=== PATIENT | female | born 1955 | race Caucasian/White ===

== ENCOUNTER 2018-02-09 00:20 | Emergency (ER) | payer OTHER ==
[2018-02-09] MEDS ORDERED: NS 500 ML IV ONE (00:23)
--- NOTE | 2018-02-09 00:25 | EDPHY ---
H & P Stated Complaint: palpitations Time Seen by Provider: 02/09/18 00:22 HPI/ROS: HPI The patient presents with palpitations which awoke her from sleep at about 9:30 p.m. Tonight. She describes a sensation of her heart racing associated with throat tightness. She waited several hours but her symptoms continued so she called paramedics. She was found to be in atrial fibrillation with rapid ventricular response. During her transport, she converted to a normal sinus rhythm. She was given aspirin 324 mg p.o. By the paramedics. She does take metoprolol regularly. She has 2 prior similar episodes though these have usually lasted for less than 1 hr. She has never been diagnosed with atrial fibrillation before. She does not have any chest pain, shortness of breath currently. REVIEW OF SYSTEMS 10 systems were reviewed and negative with the exception of the elements mentioned in the history of present illness. PMHx: History of CAD with stent in place in her RCA, placed about 8 years ago, Alejandre patient, takes baby aspirin daily, on metoprolol Soc Hx: Lives in [place] with her PHYSICAL General Appearance: Alert, no distress Eyes: Pupils equal and round no pallor or injection ENT, Mouth: Mucous membranes moist Respiratory: There are no retractions, lungs are clear to auscultation Cardiovascular: Regular rate and rhythm Gastrointestinal: Abdomen is soft and non-tender, no masses, bowel sounds normal Neurological: A&O, moves all extremities Skin: Warm and dry, no rashes Musculoskeletal: Neck is supple non tender Extremities: symmetrical, full range of motion Psychiatric: Patient is oriented X 3, there is no agitation Source: Patient Exam Limitations: No limitations Constitutional: Initial Vital Signs Temperature (C) 36.7 C 02/09/18 00:27 Heart Rate 79 02/09/18 00:27 Respiratory Rate 16 02/09/18 00:27 Blood Pressure 145/91 H 02/09/18 00:27 O2 Sat (%) 93 02/09/18 00:27 O2 Delivery Mode Room Air Allergies/Adverse Reactions: narcotics Allergy (Uncoded 02/09/18 00:24) Home Medications: Medication Instructions Recorded Atorvastatin Calcium [Lipitor 10 10 mg PO DAILY 05/02/10 mg] Lisinopril [Zestril 10 mg (*)] 10 mg PO DAILY 05/02/10 Aspirin 81 Mg 12/12/11 Metoprolol 12/12/11 Protoonix 12/12/11 Ezetimibe 02/09/18 Vitamin D3 02/09/18 Medical Decision Making - Diagnostics EKG Interpretation: EKG: Complete interpretation has been separately recorded in the [facility] archive. Summary impression: Normal sinus rhythm Imaging Results: Chest x-ray single view shows no cardiomegaly, no effusion, interpreted by me, radiology interpretation is pending. Imaging: I viewed and interpreted images myself Differential Diagnosis: 63-year-old female with history CAD with NE with stent placed about 8 years ago , hypertension, on a baby aspirin daily who presents brought in by ambulance for an episode of palpitations. Found to be in atrial fibrillation with RVR. Spontaneously converted to normal sinus rhythm. Currently feels fine. She has no prior history of atrial fibrillation though does report prior similar symptoms which were shorter lasting. Plan for monitoring here, basic laboratory testing, close outpatient follow-up with Cardiology at [facility]. CHADS-VASC2 score is 3, pt should receive anticoagulation. I spoke with Hill, Leslie RN, can schedule patient with PCP tomorrow 02/10 to discuss anticoagulation and possible cardiology referral. - Data Points Laboratory Results: Laboratory Results 02/09/18 00:40 02/09/18 00:40 02/09/18 02/09/18 02/09/18 00:42 00:40 00:40 WBC 7.06 10^3/uL 10^3/uL (3.80-9.50) RBC 4.69 10^6/uL 10^6/uL (4.18-5.33) Hgb 15.0 g/dL g/dL (12.6-16.3) Hct 44.5 % % (38.0-47.0) MCV 94.9 fL fL (81.5-99.8) MCH 32.0 pg pg (27.9-34.1) MCHC 33.7 g/dL g/dL (32.4-36.7) RDW 15.0 % % (11.5-15.2) Plt Count 206 10^3/uL 10^3/uL (150-400) MPV 9.9 fL fL (8.7-11.7) Neut % (Auto) 62.4 % % (39.3-74.2) Lymph % (Auto) 28.0 % % (15.0-45.0) [place] % (Auto) 7.4 % % (4.5-13.0) Eos % (Auto) 1.4 % % (0.6-7.6) Baso % (Auto) 0.7 % % (0.3-1.7) Nucleat RBC Rel Count 0.0 % % (0.0-0.2) Absolute Neuts (auto) 4.40 10^3/uL 10^3/uL (1.70-6.50) Absolute Lymphs (auto) 1.98 10^3/uL 10^3/uL (1.00-3.00) Absolute Monos (auto) 0.52 10^3/uL 10^3/uL (0.30-0.80) Absolute Eos (auto) 0.10 10^3/uL 10^3/uL (0.03-0.40) Absolute Basos (auto) 0.05 10^3/uL 10^3/uL (0.02-0.10) Absolute Nucleated RBC 0.00 10^3/uL 10^3/uL (0-0.01) Immature Gran % 0.1 % % (0.0-1.1) Immature Gran # 0.01 10^3/uL 10^3/uL (0.00-0.10) Sodium 143 mEq/L mEq/L (135-145) Potassium 4.2 mEq/L mEq/L (3.3-5.0) Chloride 113 mEq/L H mEq/L (97-110) Carbon Dioxide 21 mEq/l L mEq/l (22-31) Anion Gap 9 mEq/L mEq/L (6-14) BUN 17 mg/dL mg/dL (7-23) Creatinine 0.7 mg/dL mg/dL (0.6-1.0) Estimated GFR > 60 Glucose 89 mg/dL mg/dL (70-100) Calcium 8.9 mg/dL mg/dL (8.5-10.4) Magnesium 2.0 mg/dL mg/dL (1.6-2.3) POC Troponin I 0.00 ng/mL ng/mL (0.00-0.08) NT-Pro-B Natriuret Pep 152 pg/mL H pg/mL (0-125) TSH Pending Medications Given: Discontinued Medications Sodium Chloride (Ns) 500 mls @ 1,000 mls/hr IV EDNOW ONE PRN Reason: Protocol Stop: 02/09/18 00:52 Last Admin: 02/09/18 00:49 Dose: 500 mls Point of Care Test Results: Chemistry 02/09/18 00:42 POC Troponin I 0.00 ng/mL ng/mL (0.00-0.08) Departure - Departure Disposition: Home, Routine, Self-Care Clinical Impression: Atrial fibrillation Qualifiers: Atrial fibrillation type: paroxysmal Qualified Code(s): I48.0 - Paroxysmal atrial fibrillation Condition: Good Instructions: A-fib (Atrial Fibrillation) (ED) Additional Instructions: We have scheduled you an appointment with Dr. Holly at [facility] 11:30a for 02/10. Please return to the emergency department if you're worse in any way. Referrals: JANIE HOLLY [Other] - As per Instructions
[2018-02-09 00:51] LABS: PLATELET COUNT 206 10^3/uL (150-400)
[2018-02-09 02:11] VITALS: BP 134/74
--- NOTE | 2018-02-09 04:06 | CPEKG ---
Test Reason : OPEN Blood Pressure : / mmHG Vent. Rate : 078 BPM Atrial Rate : 079 BPM P-R Int : 143 ms QRS Dur : 075 ms QT Int : 385 ms P-R-T Axes : 052 005 048 degrees QTc Int : 439 ms Sinus rhythm Confirmed by Riri Rodriguez ([id number]) on 02/09/2018 4:05:17 AM Referred By: Confirmed By:Riri Rodriguez
== END 2018-02-09 02:11 | disposition home or self-care (01) ==
LOC: EDUNIT#
DX: I48.0 Paroxysmal atrial fibrillation (principal); E86.9 Volume depletion, unspecified; I25.10 Atherosclerotic heart disease of native coronary artery without angina pectoris; I25.2 Old myocardial infarction; Z95.5 Presence of coronary angioplasty implant and graft
CPT/HCPCS: 84484-PO